=== PATIENT | male | born 1960 | race Caucasian/White ===

== ENCOUNTER 2022-04-17 12:18 | Emergency (ER) | payer OTHER ==
[~2022-04-17] VITALS: Ht 177.8 cm; Wt 72.6 kg
[2022-04-17] MEDS ORDERED: IOHEXOL 350 MG/ML 100ML IJ ONE (13:07)
[2022-04-17] MEDS ORDERED: HYDROmorphone HCL 2 MG/ML VL/or syr IV ONE ×2 (13:15→18:15)
[2022-04-17] MEDS ORDERED: ONDANSETRON HCL 4 MG/2 ML VIAL IV ONE (13:15)
[2022-04-17] MEDS ORDERED: SODIUM CHLORIDE 0.9% 500 ML IV ONE (13:15)
[2022-04-17 19:28] VITALS: BP 130/76
== END 2022-04-17 20:25 | disposition short-term general hospital (02) ==
LOC: EEVIPCON 12:18 → ER 12:18 → EDBD 12:18 → ER 20:25
DX: S42.452A Displaced fracture of lateral condyle of left humerus, initial encounter for closed fracture (principal); S42.462A Displaced fracture of medial condyle of left humerus, initial encounter for closed fracture; Z88.0 Allergy status to penicillin; Y04.2XXA Assault by strike against or bumped into by another person, initial encounter; Y93.89 Activity, other specified; Y92.89 Other specified places as the place of occurrence of the external cause; Y99.8 Other external cause status
CPT/HCPCS: 29105; 73201; 96361; 96374; 96375; 96376; 99285; J1170; J2405; J7030; Q9967